=== PATIENT | male | born 1985 | race Caucasian/White ===

== ENCOUNTER → 2021-04-26 | Emergency (ER) | payer OTHER ==
[~2021-04-26] VITALS: Ht 162.6 cm; Wt 83.5 kg
[~2021-04-26] MED LIST: ECOTRIN81 MG PO; LANTUS SOL100 UNIT/1; METFORMIN HCL500 MG; SUBOXONE 12 MG1 EACH
== END | disposition home or self-care (01) ==
LOC: ER 10:04
DX: R07.89 Other chest pain (principal)